=== PATIENT | male | born 1990 | race Caucasian/White ===

== ENCOUNTER 2017-05-12 19:13 | Emergency (ER) | payer SELFPAY ==
[2017-05-12 19:33] VITALS: BP 132/78
--- NOTE | 2017-05-12 19:47 | UC ---
Abdominal Pain Male HPI - HPI Summary HPI Summary: 27 yo male with crampy diffuse abd pain and diarrhea x 10 since this AM nausea no vomiting no fever tolerating PO well no bloody diarrhea no antibiotics no travel no known bad food - History of Current Complaint Chief Complaint: UCGI Stated Complaint: DIARREAH, STOM CRAMPS Time Seen by Provider: 05/12/17 19:39 Hx Obtained From: Patient Onset/Duration: Gradual Onset Timing: Intermittent Episodes Lasting: - minutes Severity Initially: Moderate Severity Currently: None Pain Intensity: 0 Pain Scale Used: 0-10 Numeric Location: Diffuse Character: Cramping Aggravating Factor(s): Nothing Alleviating Factor(s): Nothing Associated Signs And Symptoms: Positive: Decreased Appetite, Nausea, Diarrhea. Negative: Diaphoresis, Fever, Cough, Chest Pain, Back Pain, Constipation, Blood in Stool, Urinary Symptoms, Vomiting, Penile Discharge - Allergies/Home Medications Allergies/Adverse Reactions: Allergies Allergy/AdvReac Type Severity Reaction Status Date / Time No Known Allergies Allergy Verified 05/12/17 19:31 Home Medications: Home Medications NK [No Home Medications Reported] 05/12/17 [History Confirmed 05/12/17] PMH/Surg Hx/FS Hx/Imm Hx Previously Healthy: Yes - Surgical History Surgical History: None - Family History Known Family History: Positive: Cardiac Disease - father, Diabetes - father Negative: Hypertension - Social History Alcohol Use: Occasionally Substance Use Type: None Smoking Status (MU): Heavy Every Day Tobacco Smoker Type: Cigarettes Amount Used/How Often: 1 ppd Length of Time of Smoking/Using Tobacco: strated age 15 Have You Smoked in the Last Year: Yes Household Exposure Type: Cigarettes Review of Systems Constitutional: Fatigue Skin: Negative Eyes: Negative ENT: Negative Respiratory: Negative Cardiovascular: Negative Gastrointestinal: Abdominal Pain, Diarrhea, Nausea Genitourinary: Negative Motor: Negative Neurovascular: Negative Musculoskeletal: Negative Neurological: Negative Psychological: Negative Is Patient Immunocompromised?: No All Other Systems Reviewed And Are Negative: Yes Physical Exam Triage Information Reviewed: Yes Appearance: Well-Appearing, No Pain Distress, Well-Nourished Vital Signs: Initial Vital Signs Temp 99 F 05/12/17 19:29 Pulse 80 05/12/17 19:29 Resp 14 05/12/17 19:29 BP 132/78 05/12/17 19:29 Pulse Ox 98 05/12/17 19:29 Vital Signs Reviewed: Yes Eyes: Positive: Conjunctiva Clear ENT: Positive: Hearing grossly normal, Uvula midline. Negative: Nasal congestion, Nasal drainage, Trismus, Muffled voice Neck: Positive: Supple, Nontender, No Lymphadenopathy Respiratory: Positive: Lungs clear, Normal breath sounds, No respiratory distress, No accessory muscle use Cardiovascular: Positive: RRR, No Murmur Abdomen Description: Positive: Soft. Negative: Nontender - mild tenderness to deep palpation upper quadrients, CVA Tenderness (R), CVA Tenderness (L) Bowel Sounds: Positive: Hyperactive Musculoskeletal: Positive: ROM Intact, No Edema Neurological: Positive: Alert Psychological Exam: Normal Skin Exam: Normal Abd Pain Male Course/Dx - Differential Dx/Clinical Impression Provider Diagnoses: acute diarrhea. suspect viral illness Discharge - Discharge Plan Condition: Stable Disposition: HOME Patient Education Materials: Acute Diarrhea (ED) Forms: *Gen. Provider Communication, *Work Release Referrals: No Primary Care Phys,NOPCP [Primary Care Provider] - Additional Instructions: Imodium AD recheck for new or worsening symptoms recheck for fever or if pain becomes constant and localizes recheck for blood in diarrhea recheck in 24-48 hours if not better
== END 2017-05-12 19:53 | disposition home or self-care (01) ==
LOC: UCCORT 19:13
DX: R19.7 Diarrhea, unspecified (principal); F17.210 Nicotine dependence, cigarettes, uncomplicated
CPT/HCPCS: 99211; G0463

== ENCOUNTER 2017-05-22 13:51 | Emergency (ER) | payer SELFPAY ==
[2017-05-22 15:03] VITALS: BP 146/81
[2017-05-22] MEDS ORDERED: Penicillin VK TAB* 250 MG PO ONE (15:14)
--- NOTE | 2017-05-22 15:25 | UC ---
[facility] Dental HPI - HPI Summary HPI Summary: 27 yo male with left upper toothache x 2 days facial swelling no dentist no fever no DM no heart murmur - History of Current Complaint Chief Complaint: UCDentalProblem Stated Complaint: DENTAL COMPLAINT Time Seen by Provider: 05/22/17 14:59 Hx Obtained From: Patient Onset/Duration: Gradual Onset, Lasting Days Severity: Severe Pain Intensity: 8 Pain Scale Used: 0-10 Numeric Aggravating Factor(s): Nothing Alleviating Factor(s): Topical Meds Related History: Swelling - Allergies/Home Medications Allergies/Adverse Reactions: Allergies Allergy/AdvReac Type Severity Reaction Status Date / Time No Known Allergies Allergy Verified 05/22/17 14:53 Home Medications: Home Medications Eugenol 0 ml MC QID PRN 05/22/17 [History Confirmed 05/22/17] Ibuprofen TAB* [Motrin TAB* 800 MG] 800 mg PO Q3H PRN 05/22/17 [History Confirmed 05/22/17] PMH/Surg Hx/FS Hx/Imm Hx Previously Healthy: Yes - Surgical History Surgical History: None - Family History Known Family History: Positive: Cardiac Disease - father, Diabetes - father Negative: Hypertension - Social History Alcohol Use: Occasionally Substance Use Type: None Smoking Status (MU): Heavy Every Day Tobacco Smoker Type: Cigarettes Amount Used/How Often: 1 ppd Length of Time of Smoking/Using Tobacco: strated age 15 Have You Smoked in the Last Year: Yes Household Exposure Type: Cigarettes Cessation Counseling: Patient Advised to Stop Review of Systems Constitutional: Negative Skin: Negative Eyes: Negative ENT: Dental Pain Respiratory: Negative Cardiovascular: Negative Gastrointestinal: Negative Genitourinary: Negative Motor: Negative Neurovascular: Negative Musculoskeletal: Negative Neurological: Negative Psychological: Negative Is Patient Immunocompromised?: No All Other Systems Reviewed And Are Negative: Yes Physical Exam Triage Information Reviewed: Yes Appearance: Well-Appearing, No Pain Distress, Well-Nourished Vital Signs: Initial Vital Signs Temp 99.3 F 05/22/17 14:57 Pulse 74 05/22/17 14:57 Resp 16 05/22/17 14:57 BP 146/81 05/22/17 14:57 Pulse Ox 99 05/22/17 14:57 Eyes: Positive: Conjunctiva Clear ENT: Positive: Hearing grossly normal, TMs normal. Negative: Tonsillar swelling , Tonsillar exudate, Muffled voice, Hoarse voice Dental: Positive: Other: - see image Neck: Positive: Supple, Enlarged Nodes @ - left ant cerv Respiratory: Positive: Lungs clear, Normal breath sounds, No respiratory distress Cardiovascular: Positive: RRR, No Murmur Neurological Exam: Normal Neurological: Positive: Alert Psychological Exam: Normal Skin Exam: Normal Dental Complaint Course/Dx - Differential Dx/Diagnosis Provider Diagnoses: dental abscess Discharge - Discharge Plan Condition: Stable Disposition: HOME Prescriptions: HYDROcodone/ACETAMIN 5-325 MG* [[place] 5-325 TAB*] 1 tab PO Q4H PRN #10 tab MDD 2 PRN Reason: Pain Penicillin VK 500 MG TAB(NF) [Penicillin VK 500 mg Tab] 500 mg PO QID #28 tab Patient Education Materials: Dental Abscess (ED) Forms: *Work Release Referrals: No Primary Care Phys,NOPCP [Primary Care Provider] - Additional Instructions: see dentist first available appt to ER for worsening symptoms recheck in 2-3 days if not better continue ibuprofen take narcotic at night to help if pain is keeping you awake Images Dental: 1 - rotted to gum lines/swollen 2 - rotted to gum lines/swollen
== END 2017-05-22 15:21 | disposition home or self-care (01) ==
LOC: UCCORT 13:51
DX: K04.7 Periapical abscess without sinus (principal); F17.210 Nicotine dependence, cigarettes, uncomplicated
CPT/HCPCS: 99212; A9270-GY; G0463

== ENCOUNTER 2017-10-15 15:44 | Emergency (ER) | payer SELFPAY ==
[2017-10-15 16:25] VITALS: BP 143/80
--- NOTE | 2017-10-15 16:38 | UC ---
[facility] HPI - HPI Summary HPI Summary: right upper last molar is decayed and broken to the gum line--awoke 3-5 days ago with right upper dental pain and today awoke with swelling in right cheek and pain right upper gum - History of Current Complaint Chief Complaint: UCDentalProblem Stated Complaint: DENTAL Time Seen by Provider: 10/15/17 16:26 Hx Obtained From: Patient Onset/Duration: Sudden Onset, Lasting Days, Still Present, Worse Since - this morning Pain Intensity: 8 Pain Scale Used: 0-10 Numeric Aggravating Factor(s): Chewing Alleviating Factor(s): Nothing Related History: Previous Dental Care on Same Tooth, Swelling - Allergies/Home Medications Allergies/Adverse Reactions: Allergies Allergy/AdvReac Type Severity Reaction Status Date / Time No Known Allergies Allergy Verified 10/15/17 16:19 PMH/Surg Hx/FS Hx/Imm Hx Previously Healthy: Yes - Surgical History Surgical History: None - Family History Known Family History: Positive: Cardiac Disease - father, Diabetes - father Negative: Hypertension - Social History Occupation: Employed Full-time Lives: With Family Alcohol Use: Occasionally Substance Use Type: None Smoking Status (MU): Heavy Every Day Tobacco Smoker Type: Cigarettes Amount Used/How Often: 1 ppd Length of Time of Smoking/Using Tobacco: strated age 15 Have You Smoked in the Last Year: Yes Household Exposure Type: Cigarettes - Immunization History Most Recent Tetanus Shot: UTD Review of Systems Constitutional: Negative Skin: Negative Eyes: Negative ENT: Dental Pain - right upper gum Respiratory: Negative Cardiovascular: Negative Gastrointestinal: Negative Genitourinary: Negative Motor: Negative Neurovascular: Negative Musculoskeletal: Negative Neurological: Negative Psychological: Negative Is Patient Immunocompromised?: No All Other Systems Reviewed And Are Negative: Yes Physical Exam Triage Information Reviewed: Yes Appearance: Well-Appearing, Well-Nourished, Pain Distress - mild Vital Signs: Initial Vital Signs Temp 98.2 F 10/15/17 16:20 Pulse 54 10/15/17 16:20 Resp 16 10/15/17 16:20 BP 143/80 10/15/17 16:20 Pulse Ox 100 10/15/17 16:20 Vital Signs Reviewed: Yes Eye Exam: Normal Eyes: Positive: Conjunctiva Clear ENT Exam: Normal ENT: Positive: Normal ENT inspection, Hearing grossly normal. Negative: Trismus , Muffled voice, Hoarse voice Dental Exam: Normal Neck exam: Normal Neck: Positive: Supple, Nontender, No Lymphadenopathy Respiratory Exam: Normal Respiratory: Positive: Chest non-tender, No respiratory distress, No accessory muscle use Cardiovascular Exam: Normal Cardiovascular: Positive: RRR, Pulses Normal, Brisk Capillary Refill Musculoskeletal Exam: Normal Musculoskeletal: Positive: Strength Intact, ROM Intact, No Edema Neurological Exam: Normal Neurological: Positive: Alert, Muscle Tone Normal Psychological Exam: Normal Skin Exam: Normal Dental Complaint Course/Dx - Course Course Of Treatment: ibuprofen, tylenol, amoxicillin, mouth rice follow with dentist FARHAT - Differential Dx/Diagnosis Provider Diagnoses: right upper dental decay with abscess Discharge - Sign-Out/Discharge Documenting (check all that apply): Patient Departure - Discharge Plan Condition: Stable Disposition: HOME Prescriptions: Amoxicillin PO (*) [Amoxicillin 500 MG CAP*] 500 mg PO TID #30 cap Chlorhexidine MOUTHWASH 0.12%* [Peridex Mouth Wash 0.12%*] 15 ml SWISH SPIT BID #473 ml Patient Education Materials: Dental Abscess (ED), Hypertension (ED) Forms: *Work Release Referrals: ROMA Tamez [Medical Doctor] - 1 Week - Billing Disposition and Condition Condition: STABLE Disposition: Home
[2017-10-15] MEDS ORDERED: Amoxicillin PO (*) 500 MG CAP PO ONE (16:49)
== END 2017-10-15 17:00 | disposition home or self-care (01) ==
LOC: UCCORT 15:44
DX: K02.9 Dental caries, unspecified (principal); K04.7 Periapical abscess without sinus; F17.210 Nicotine dependence, cigarettes, uncomplicated
CPT/HCPCS: 99212; A9270-GY; G0463